=== PATIENT | male | born 1990 | race African-American/Black ===

== ENCOUNTER 2020-03-02 04:35 | Emergency (ER) | payer BC ==
[~2020-03-02] VITALS: Ht 170.2 cm; Wt 86.4 kg
[2020-03-02 04:37] VITALS: BP 127/71
[2020-03-02] MEDS ORDERED: VISCOUS LIDOCAINE 2% 15 ML UDC MM ONE (06:15)
[2020-03-02] MEDS ORDERED: MAGNESIUM/ALUMINUM HYDROXIDE/SIMETHICONE 30ML UDC PO ONE (06:15)
== END 2020-03-02 08:51 | disposition home or self-care (01) ==
LOC: ER 04:35
DX: R09.89 Other specified symptoms and signs involving the circulatory and respiratory systems (principal)
CPT/HCPCS: 99282